=== PATIENT | male | born 1935 | race Caucasian/White ===

== ENCOUNTER 2016-03-06 09:53 | Emergency (ER) | payer MEDICARE ==
[2016-03-06 10:20] VITALS: PULSE 60; TEMP 97.7; BMI 29.0
[2016-03-06] MEDS ORDERED: KETOROLAC TROMETHAMINE 10 MG TAB PO ONE (10:28)
[2016-03-06] MEDS ORDERED: DIAZEPAM 2 MG TAB PO ONE (10:29)
--- NOTE | 2016-03-06 10:31 | EDPRACDOC ---
- General Information Chief Complaint: Hip Pain Stated Complaint: LT HIP PAIN Time Seen by Provider: 03/06/16 10:26 Mode Of Arrival: Car Home Medications: Home Medications Aspirin [Ecotrin] 81 mg PO DAILY 07/06/14 Omeprazole [Prilosec] 40 mg PO DAILY 07/06/14 Lisinopril [Prinivil] 10 mg PO DAILY 10/20/14 Gabapentin [Neurontin] 300 mg PO BID 03/06/16 Hydrochlorothiazide 25 mg PO DAILY 03/06/16 Ketorolac Tromethamine [Toradol] 10 mg PO Q6H PRN #20 tab 03/06/16 Meloxicam [Mobic] 15 mg PO DAILY 03/06/16 Oxycodone HCl/Acetaminophen [Percocet 5-325 mg Tablet] 1 each PO Q4 #20 tablet 03/06/16 Prednisone [Sterapred 10 mg/6 day pack] 21 tab PO DIR #1 pack 03/06/16 Simvastatin [Zocor] 80 mg PO QHS 03/06/16 Tamsulosin HCl [Flomax] 0.4 mg PO QAM 03/06/16 Allergies/Adverse Reactions: Allergies Allergy/AdvReac Type Severity Reaction Status Date / Time No Known Allergies Allergy Verified 03/06/16 10:20 - History of Present Illness Onset: LAST SATURDAY HPI: PATIENT STATES HE BEGAN HAVING SUDDEN LEFT SIDED BACK PAIN AFTER PULLING A CORD ON A CHAINSAW. PAIN RADIATES INTO BUTTOCK AND DOWN BACK OF LEG. NO LOSS OF BOWEL OR BLADDER CONTROL. NO NUMBNESS OR TINGLING Pain Location: Reports: Left, Lower, Lumbar Pain Radiates To: Reports: Thigh, Buttock Pain Caused By: Reports: Twisting Circumstances: Reports: Work-related Pain Severity: Reports: Moderate Pain Quality: Reports: Aching Worsened By: Reports: Movement Associated Signs and Symptoms: Reports: None ED Past Medical History - History Reviewed Yes Nurses notes reviewed and agree except as marked Travel Outside of [place] in the Last 3 Months?: No - Patient Medical History Neurological History: Reports: Cerebrovascular Accident. Denies: Seizures Cardiac History: Reports: Coronary Artery Disease, Hypertension, Heart Attack ( 1997), Cardiac Catheterization, CABG (x5V), Stress Test, Hypercholesterolemia. Denies: Congestive Heart Failure, Pacemaker Respiratory History: Denies: Pneumonia, Emphysema GI/ History: Reports: Gastroesophageal Reflux. Denies: Renal Failure, Urinary Tract Infection Musculoskeletal History: Reports: Arthritis Psychological History: Denies: Substance Use Disorder Systemic History: Denies: Anemia, Hyperthyroidism, Hypothyroidism Surgical History: Reports: CABG (x5V), Cardiac Catheterization, Tonsillectomy/ Adnoidectomy, Other (hand surgery (repair finger fractures), and hemorrhoidectomy). Denies: Hernia Surgery - Family Medical History Reports: Hypertension (siblings, Dad, Mom), Diabetes (Mom), Cancer (Mom, Brother ), Stroke (Dad), Cardiac Disorders (Siblings) - Social Medical History Smoking Status: Never smoker Social History: Denies: Substance Use Disorder ETOH: None Substance Abuse: None Lives With: Family Lives In: Home EDM Review of Systems - Review of Systems ROS Negative Except as Marked: Yes All systems reviewed and were negative except as marked Constitutional: No Symptoms Reported. negative: Fever, Chills, Weakness, Fatigue, Loss of Appetite Eyes: No Symptoms Reported. negative: Redness, Blurred Vision, Double Vision, Discharge, Pain, Light Sensitive, Photophobia Ears: No Symptoms Reported. negative: Pain, Hearing Loss, Drainage, Ear Pulling Throat: No Symptoms Reported. negative: Pain, Swelling Nose: No Symptoms Reported. negative: Congestion, Bleeding, Discharge, Injection, Swelling, Deformity, Ecchymosis, Tender, Abrasion, Laceration Mouth: No Symptoms Reported. negative: Pain, Drooling Respiratory: No Symptoms Reported. negative: Cough, Brassy Cough, Barky Cough, Shortness of Breath, Wheezing, Hemoptysis Cardiovascular: No Symptoms Reported. negative: Chest Pain, Palpitations, Syncope, Edema, Orthopnea, PND, Skin Mottling, Cyanosis Gastrointestinal: No Symptoms Reported. negative: Pain, Constipation, Nausea, Vomiting, Diarrhea, Melena, Formula Intolerance Genitourinary: No Symptoms Reported. negative: Dysuria, Hematuria, Frequency, Discharge, Bleeding, Testicular Pain, Neurological: No Symptoms Reported. negative: Headache, Dizziness, Seizure, Numbness, Weakness, Speech Difficulty, Gait Difficulty Musculoskeletal: Back. negative: Arm, Ankle, Chestwall, Elbow, Forearm, Femur, Foot, Hand, Hip, Knee, Leg, Neck, Pelvis, Ribs, Shoulder, Wrist Integumentary: No Symptoms Reported. negative: Itching, Rash, Bruising, Wound Allergic/Immunologic: No Symptoms Reported. negative: Hives, Itching Hematologic: No Symptoms Reported. negative: Lymphadenopathy, Easy Bruising, Easy Bleeding Endocrine: No Symptoms Reported. negative: Weight Gain, Weight Loss Psychiatric: No Symptoms Reported. negative: Anxiety, Depression, Hallucinations, Insomnia, Suicidal - Physical Exam Constitutional: Alert (Awake), Distress (MILD) Oriented to: Time, Person, Place Last recorded Vital Signs: Last Vital Signs Temp 97.7 F 03/06/16 10:16 Pulse 60 03/06/16 10:16 Resp 20 03/06/16 10:16 BP 145/65 03/06/16 10:16 Pulse Ox 98 03/06/16 10:16 Oxygen Pulse Oxygen Saturation 98 O2 Device Room Air Oxygen Flow Rate Fraction of Inspired Oxygen ( FIO2) - HEENT Head: Normal ( normocephalic) Eye Exam: Normal (PERRL, EOMI, Sclera white) Oropharynx: Normal (Pharynx:Moist without exudate,Gums-no swelling) Tympanic Membrane: Normal ENT EAC: Normal TMJ: Normal Nose: No Symptoms Reported (septum midline) Neck: Normal (FROM, trachea at midline) - Respiratory/Cardiovascular Respiratory: Normal - CTA (BBS clear to auscultation without adventitious sounds ) Cardiovascular: Normal (RRR without murmur, gallop or rub) - GI Auscultation: Normal (NABS) Palpation: Normal (Soft,No rebound or guarding, non distended) Tenderness: Non tender Clark's Sign: Negative - Musculoskeletal Extremities: Normal (Normal tone, Pulses 2+ No cyanosis or edema, FROM) - Integumentary Skin: Normal, Warm, Dry Lymphatics: Normal (no adenopathy) - Neurologic Memory Impaired: Normal Motor Function: Normal (Normal tone, Pulses 2+ No cyanosis or edema, FROM) Cranial Nerve: Normal (CN II-X11 intact sensation, strength 5/5) Cerebellar: Normal Mood Description: Normal Perception: Normal ED Back Exam - Neurologic Motor Deficit: None Reflexes: Normal - Musculoskeletal Cervical: Normal Thoracic: Normal Lumbar: Spasm Midline: Normal Paraspinous: Spasm Straight Leg Raise: Negative Pelvis: Normal Decision Time to Discharge: 11:20 - Departure Yes I personally saw and evaluated the patient. Disposition: Home Condition: Good Final Diagnosis: Lumbar radiculopathy, acute Instructions: Lumbar Radiculopathy (ED) Education/Counseling Given To: Patient Education/Counseling Given Regarding: Diagnosis, Treatment, Prognosis, Follow Up Referrals: Johann Marie MD [Staff Physician] - One Week Ventura Mcneil MD [Primary Care Provider] - One Week Prescriptions: Ketorolac Tromethamine [Toradol] 10 mg PO Q6H PRN #20 tab PRN Reason: Pain Oxycodone HCl/Acetaminophen [Percocet 5-325 mg Tablet] 1 each PO Q4 #20 tablet Prednisone [Sterapred 10 mg/6 day pack] 21 tab PO DIR #1 pack
--- NOTE | 2016-03-06 10:57 | DIRPT ---
CLINICAL DATA: Left hip region pain after sudden motion 1 week prior. EXAM: LEFT HIP (WITH PELVIS) 2-3 VIEWS COMPARISON: None. FINDINGS: Frontal pelvis as well as frontal and lateral left hip images were obtained. No acute fracture or dislocation. There is mild symmetric narrowing of both hip joints. No erosive change. There are foci of arterial vascular calcification bilaterally. IMPRESSION: Mild symmetric narrowing of both hip joints. No fracture or dislocation. Foci of arterial vascular calcification bilaterally. Electronically Signed By: Ezequiel Swartz III, M.D. On: 03/06/2016 10:54
--- NOTE | 2016-03-06 11:00 | DIRPT ---
CLINICAL DATA: Seven onset of left-sided back pain over the past week after pulling and coronal chainsaw all; pain radiates into the left buttock and left leg ; no bowel or bladder symptoms ; history of a fixed sciatic nerve. EXAM: LUMBAR SPINE - COMPLETE 4+ VIEW COMPARISON: Lumbar spine series of April 01, 2013 FINDINGS: The lumbar vertebral bodies are preserved in height. Since the previous study there has developed moderate narrowing of the L1-2 disc with a vacuum phenomena. Mild chronic narrowing at L2-3 with moderate narrowing at L3-4 and L4-5 and mild narrowing at L5-S1 is observed. There is no spondylolisthesis. Anterior endplate osteophytes are noted from L2-3 through L5-S1. There is facet joint hypertrophy at L4-5 and at L5-S1. The pedicles and transverse processes are intact. The observed portions of the sacrum are normal. IMPRESSION: 1. New moderate loss of height of the L1-2 disc space with a vacuum phenomena. 2. Stable mild to moderate disc space narrowing at the other lumbar levels. 3. There is no compression fracture nor spondylolisthesis. Electronically Signed By: Bennie Hauser M.D. On: 03/06/2016 10:57
[2016-03-06 11:45] VITALS: BP 193/83
== END 2016-03-06 11:40 | disposition home or self-care (01) ==
LOC: ED 09:53
DX: M54.16 Radiculopathy, lumbar region (principal)
CPT/HCPCS: 72110; 73502; 99283; A9270; J3490